=== PATIENT | male | born 1970 | race Caucasian/White ===

== ENCOUNTER 2024-06-23 23:32 | Observation (INO) | payer OTHER ==
--- NOTE | 2024-06-23 23:41 | ERPHSYRPT ---
- History of Present Illness Time Seen by Provider: 06/23/24 23:41 Historian: patient, family Exam Limitations: no limitations Physician History: This is a 53-year-old white male patient arrives via private vehicle accompanied by his significant other who presents with chest pain, palpitations and dizziness that began approximately 45 minutes prior to arrival. Patient states he has had an PR in the past but he has no coronary artery stents or coronary artery bypass grafting. He has seen a magnetic doctor, Dr. Valladares (older) in the past. Patient states he had pericarditis in the past which compressed his heart causing a heart attack but his cardiac catheterization did not show any coronary artery vessel disease. Patient has a history of gastroesophageal reflux d isease, gout, hypertension, diabetes, and COPD. He denies cough. He denies fever. In the last 24 hours he has taken to 81 mg baby aspirin Timing/Duration: today Location: substernal, central Chest Pain Radiation: no radiation Severity of Pain-Max: mild Severity of Pain-Current: mild Associated Symptoms: palpitations, dizziness, No abdominal pain, No shortness of breath Prior Chest Pain/Cardiac Workup: cardiac cath Nitro Today/Relief: no nitro taken today Aspirin Treatment Today: 81 mg x 2, provided at home Allergies/Adverse Reactions: codeine Allergy (Intermediate, Verified 06/23/24 23:52) Vomiting diphenhydramine HCl [From Benadryl] Adverse Reaction (Intermediate, Verified 06/23/24 23:52) acetaminophen [From [employer] [place]] Adverse Reaction (Verified 06/23/24 23:52) hydrocodone [From [employer] [place]] Adverse Reaction (Verified 06/23/24 23:52) Home Medications: Omeprazole 40 mg PO DAILY 09/27/14 [History] Allopurinol 300 mg [Zyloprim 300 mg] 300 mg PO DAILY 12/17/18 [History] lisinopriL [Zestril] 5 mg PO DAILY 12/17/18 [History] Metoprolol Succinate 50 mg [Toprol Xl 50 MG] 50 mg PO BID 08/05/20 [Hi story] Cyanocobalamin (Vitamin B-12) [Vitamin B-12] 1,000 mcg PO DAILY 12/12/23 [History] Dapagliflozin Propanediol [Farxiga] 10 mg PO DAILY 12/12/23 [History] Lurasidone HCl [Latuda] 60 mg PO DAILY 12/12/23 [History] Montelukast Sodium 10 mg [Singulair 10 MG] 10 mg PO DAILY 12/12/23 [History] Trazodone HCl 300 mg PO HS 12/12/23 [History] Zinc Gluconate [Zinc] 50 mg PO DAILY 12/12/23 [History] Semaglutide [Ozempic] 1 mg SQ WEEKLY 06/23/24 [History] Sitagliptin Phosphate 50 MG [Januvia 50 MG] 100 mg PO DAILY 06/23/24 [History] Hx Tetanus, Diphtheria Vaccination/Date Given: Yes Hx Influenza Vaccination/Date Given: No Hx Pneumococcal Vaccination/Date Given: No Travel Risk - International Travel Have you traveled outside of the country in past 3 weeks: No - Emerging Infectious Disease Are you exhibiting symptoms associated with any current EIDs: No - Review of Systems Constitutional: No Symptoms Eyes: No Symptoms Ears, Nose, & Throat: No Symptoms Respiratory: No Symptoms Cardiac: Chest Pain, Palpitations Abdominal/Gastrointestinal: No Symptoms Genitourinary Symptoms: No Symptoms Musculoskeletal: No Symptoms Skin: No Symptoms Neurological: Dizziness Psychological: No Symptoms Endocrine: No Symptoms Hematologic/Lymphatic: No Symptoms Immunological/Allergic: No Symptoms All Other Systems: Reviewed and Negative - Past Medical History Neurological History: No Pertinent History Cardiac History: Hypertension Respiratory History: No Pertinent History Endocrine Medical History: Diabetes Type II Musculoskeletal History: No Pertinent History Other Medical History: DEXCOM. HX OF SX ON R WRIST AFTER A FALL, SINUS SX, HEART CATH - Past Surgical History Past Surgical History: Yes Neuro Surgical History: No Pertinent History Cardiac: Cardiac Catheterization Respiratory: No Pertinent History Gastrointestinal: No Pertinent History Genitourinary: No Pertinent History Musculoskeletal: Orthopedic Surgery Male Surgical History: No Pertinent History Other Surgical History: R WRIST, SINUS - Social History Smoking Status: Never smoker Exposure to second hand smoke: No - Social Determinants of Health Will the patient participate in the screening: Yes Do you worry about a steady place to live?: No In the past 12 months,have you had to go without utilities?: No Transportation Issues: No Has anyone in your support network made you feel unsafe?: No Have you or anyone in your house had to go w/o enough food: No - Nursing Vital Signs Nursing Vital Signs: Initial Vital Signs Temperature 96.3 F 06/23/24 23:40 Pulse Rate 126 H 06/23/24 23:40 Respiratory Rate 20 06/23/24 23:40 Blood Pressure 125/96 06/23/24 23:40 O2 Sat by Pulse Oximetry 94 L 06/23/24 23:40 Pain Scale Pain Intensity 3 - Physical Exam General Appearance: no apparent distress, alert, anxiety Eye Exam: PERRL/EOMI, eyes nml inspection Ears, Nose, Throat Exam: normal ENT inspection, moist mucous membranes Neck Exam: normal inspection, non-tender, supple, full range of motion Respiratory Exam: normal breath sounds, chest tenderness (Mild substernal, central nonradiating), lungs clear, airway intact, No respiratory distress Cardiovascular Exam: tachycardia, irregular Gastrointestinal/Abdomen Exam: soft, normal bowel sounds, No tenderness Rectal Exam: not done Back Exam: normal inspection, normal range of motion, No CVA tenderness, No vertebral tenderness Extremity Exam: normal inspection, normal range of motion, pelvis stable Neurologic Exam: alert, oriented x 3, cooperative, cash applications associate II-XII nml as tested, nml cerebellar function, nml station & gait, sensation nml Skin Exam: normal color, warm, dry Lymphatic Exam: No adenopathy SpO2 Interpretation: normal O2 Delivery: Room Air - Course Nursing assessment & vital signs reviewed: Yes EKG Interpreted by Me: RATE (140), A-fib, NORMAL AXIS, prolonged QT interval (B orderline), NORMAL QRS, Other (QTc is 485. No acute ischemia on today's twelve- lead EKG.) Ordered Tests: Active Orders 24 hr Category Date Time Status Activities Specialist STAT Care 06/23/24 23:44 Active EKG-ER Only STAT Care 06/23/24 23:43 Active IV Insertion STAT Care 06/23/24 23:43 Active Pulse Oximetry (ED) STAT Care 06/24/24 00:17 Active CBC W DIFF Stat Lab 06/23/24 23:50 Completed CMP Stat Lab 06/23/24 23:50 Completed MAGNESIUM Stat Lab 06/23/24 23:50 Completed NT PRO BNPII Stat Lab 06/23/24 23:50 Completed PROTIME WITH INR Stat Lab 06/23/24 23:50 Completed TROPONIN Q4H Lab 06/24/24 00:00 Completed TROPONIN Q4H Lab 06/24/24 04:30 Ordered TROPONIN Q4H Lab 06/24/24 08:30 Ordered TSH [TSH, 3RD Generation] Stat Lab 06/24/24 00:00 Completed UA W/RFX UR CULTURE Stat Lab 06/23/24 23:49 Completed Medication Summary Generic Name Dose Route Start Last Admin Trade Name Silver PRN Reason Stop Dose Admin Diltiazem HCl 100 mls @ 5 mls/hr 06/24/24 00:51 06/24/24 01:02 Cardizem Drip 100 Mg/100 Ml D5w IV 07/24/24 00:50 5 mg/hr .Q20H PRN 5 mls/hr HEART RATE/ A-FIB Administration Protocol 5 MG/HR Discontinued Medications Generic Name Dose Route Start Last Admin Trade Name Freq PRN Reason Stop Dose Admin Aspirin 162 mg 06/24/24 00:17 06/24/24 00:29 Aspirin 81 Mg Tab.Chew PO 06/24/24 00:18 162 mg STAT ONE Administration Aspirin Confirm 06/24/24 00:28 Aspirin 81 Mg Tab.Chew Administered 06/24/24 00:29 Dose 162 mg .ROUTE .STK-MED ONE Diltiazem HCl 15 mg 06/23/24 23:49 06/23/24 23:55 Diltiazem Hcl Iv 5 Mg/Ml Vial IV 06/23/24 23:50 15 mg STAT ONE Administration Diltiazem HCl Confirm 06/23/24 23:54 Diltiazem Hcl Iv 5 Mg/Ml Vial Administered 06/23/24 23:55 Dose 50 mg IV .STK-MED ONE Lab/Rad Data: Laboratory Result Diagrams 06/23/24 23:50 06/23/24 23:50 Laboratory Results 06/24/24 06/24/24 06/24/24 Range/Units 00:00 00:00 00:00 WBC (4.23-9.07) x10^3/uL RBC (4.63-6.08) x10^6/uL Hgb (13.7-17.5) g/dL Hct (40.1-51.0) % MCV (79.0-92.2) fL MCH (25.7-32.2) pg MCHC (32.3-36.5) g/dL RDW (11.6-14.4) % Plt Count (163-337) x10^3/uL MPV (9.4-12.4) fL Gran % (34.0-67.9) % Immature Gran % (Auto) (0.001-0.429) % Nucleat RBC Rel Count (0.00-0.2) % Eos # (Auto) (0.04-0.54) x10^3/uL Immature Gran # (Auto) (0.001-0.031) x10^3u/L Absolute Lymphs (auto) (1.32-3.57) x10^3/uL Absolute Monos (auto) (0.30-0.82) x10^3/uL Absolute Nucleated RBC (0.00-0.012) x10^3u/L Lymphocytes % (21.8-53.1) % Monocytes % (5.3-12.2) % Eosinophils % (0.8-7.0) % Basophils % (0.2-1.2) % Absolute Granulocytes (1.78-5.38) x10^3/uL Basophils # (0.01-0.08) x10^3/uL PT (9.4-12.5) SECONDS INR (0.8-3.0) Sodium (135-145) mmol/L Potassium (3.5-5.1) mmol/L Chloride (98-107) mmol/L Carbon Dioxide (22-30) mmol/L Anion Gap (5-15) MEQ/L BUN (9-20) mg/dL Creatinine (0.66-1.25) mg/dL Estimated GFR ML/MIN Glucose (74-106) mg/dL Calcium (8.4-10.2) mg/dL Magnesium (1.6-2.3) mg/dL Total Bilirubin (0.2-1.3) mg/dL AST (17-59) U/L ALT (0-50) U/L Alkaline Phosphatase (38-126) U/L Troponin I < 0.012 (0.000-0.033) ng/mL NT-Pro-B Natriuret Pep (<300) pg/mL Serum Total Protein (6.3-8.2) g/dL Albumin (3.5-5.0) g/dL Free T4 1.11 (0.78-2.19) ng/dL TSH 3rd Generation 3.028 (0.470-4.680) mIU/L Urine Color (Yellow) Urine Appearance (Clear) Urine pH (4.6-8.0) Ur Specific [place] (1.005-1.030) Urine Protein (Negative) Urine Glucose (UA) (Negative) mg/dL Urine Ketones (Negative) Urine Blood (Negative) Urine Nitrite (Negative) Urine Bilirubin (Negative) Urine Urobilinogen (0.2) mg/dL Ur Leukocyte Esterase (Negative) U Hyaline Cast (Auto) (0-2) /LPF Urine Microscopic RBC (0-5) /HPF Urine Microscopic WBC (0-5) /HPF Ur Epithelial Cells (None Seen) /HPF Urine Bacteria (None Seen) /HPF Urine Culture Reflexed (NO) 06/23/24 06/23/24 06/23/24 Range/Units 23:50 23:50 23:50 WBC (4.23-9.07) x10^3/uL RBC (4.63-6.08) x10^6/uL Hgb (13.7-17.5) g/dL Hct (40.1-51.0) % MCV (79.0-92.2) fL MCH (25.7-32.2) pg MCHC (32.3-36.5) g/dL RDW (11.6-14.4) % Plt Count (163-337) x10^3/uL MPV (9.4-12.4) fL Gran % (34.0-67.9) % Immature Gran % (Auto) (0.001-0.429) % Nucleat RBC Rel Count (0.00-0.2) % Eos # (Auto) (0.04-0.54) x10^3/uL Immature Gran # (Auto) (0.001-0.031) x10^3u/L Absolute Lymphs (auto) (1.32-3.57) x10^3/uL Absolute Monos (auto) (0.30-0.82) x10^3/uL Absolute Nucleated RBC (0.00-0.012) x10^3u/L Lymphocytes % (21.8-53.1) % Monocytes % (5.3-12.2) % Eosinophils % (0.8-7.0) % Basophils % (0.2-1.2) % Absolute Granulocytes (1.78-5.38) x10^3/uL Basophils # (0.01-0.08) x10^3/uL PT 11.2 (9.4-12.5) SECONDS INR 1.03 (0.8-3.0) Sodium 138 (135-145) mmol/L Potassium 3.7 (3.5-5.1) mmol/L Chloride 102 (98-107) mmol/L Carbon Dioxide 27 (22-30) mmol/L Anion Gap 12.5 (5-15) MEQ/L BUN 13 (9-20) mg/dL Creatinine 1.17 (0.66-1.25) mg/dL Estimated GFR 75.5 ML/MIN Glucose 218 H (74-106) mg/dL Calcium 8.8 (8.4-10.2) mg/dL Magnesium 1.7 (1.6-2.3) mg/dL Total Bilirubin 0.70 (0.2-1.3) mg/dL AST 66 H (17-59) U/L ALT 78 H (0-50) U/L Alkaline Phosphatase 126 (38-126) U/L Troponin I (0.000-0.033) ng/mL NT-Pro-B Natriuret Pep 193 (<300) pg/mL Serum Total Protein 6.5 (6.3-8.2) g/dL Albumin 3.8 (3.5-5.0) g/dL Free T4 (0.78-2.19) ng/dL TSH 3rd Generation (0.470-4.680) mIU/L Urine Color (Yellow) Urine Appearance (Clear) Urine pH (4.6-8.0) Ur Specific [place] (1.005-1.030) Urine Protein (Negative) Urine Glucose (UA) (Negative) mg/dL Urine Ketones (Negative) Urine Blood (Negative) Urine Nitrite (Negative) Urine Bilirubin (Negative) Urine Urobilinogen (0.2) mg/dL Ur Leukocyte Esterase (Negative) U Hyaline Cast (Auto) (0-2) /LPF Urine Microscopic RBC (0-5) /HPF Urine Microscopic WBC (0-5) /HPF Ur Epithelial Cells (None Seen) /HPF Urine Bacteria (None Seen) /HPF Urine Culture Reflexed (NO) 06/23/24 06/23/24 Range/Units 23:50 23:49 WBC 9.0 (4.23-9.07) x10^3/uL RBC 4.66 (4.63-6.08) x10^6/uL Hgb 13.5 L (13.7-17.5) g/dL Hct 40.6 (40.1-51.0) % MCV 87.1 (79.0-92.2) fL MCH 29.0 (25.7-32.2) pg MCHC 33.3 (32.3-36.5) g/dL RDW 13.1 (11.6-14.4) % Plt Count 262 (163-337) x10^3/uL MPV 8.9 L (9.4-12.4) fL Gran % 59.5 (34.0-67.9) % Immature Gran % (Auto) 0.2 (0.001-0.429) % Nucleat RBC Rel Count 0.0 (0.00-0.2) % Eos # (Auto) 0.20 (0.04-0.54) x10^3/uL Immature Gran # (Auto) 0.02 (0.001-0.031) x10^3u/L Absolute Lymphs (auto) 2.54 (1.32-3.57) x10^3/uL Absolute Monos (auto) 0.85 H (0.30-0.82) x10^3/uL Absolute Nucleated RBC 0.00 (0.00-0.012) x10^3u/L Lymphocytes % 28.1 (21.8-53.1) % Monocytes % 9.4 (5.3-12.2) % Eosinophils % 2.2 (0.8-7.0) % Basophils % 0.6 (0.2-1.2) % Absolute Granulocytes 5.37 (1.78-5.38) x10^3/uL Basophils # 0.05 (0.01-0.08) x10^3/uL PT (9.4-12.5) SECONDS INR (0.8-3.0) Sodium (135-145) mmol/L Potassium (3.5-5.1) mmol/L Chloride (98-107) mmol/L Carbon Dioxide (22-30) mmol/L Anion Gap (5-15) MEQ/L BUN (9-20) mg/dL Creatinine (0.66-1.25) mg/dL Estimated GFR ML/MIN Glucose (74-106) mg/dL Calcium (8.4-10.2) mg/dL Magnesium (1.6-2.3) mg/dL Total Bilirubin (0.2-1.3) mg/dL AST (17-59) U/L ALT (0-50) U/L Alkaline Phosphatase (38-126) U/L Troponin I (0.000-0.033) ng/mL NT-Pro-B Natriuret Pep (<300) pg/mL Serum Total Protein (6.3-8.2) g/dL Albumin (3.5-5.0) g/dL Free T4 (0.78-2.19) ng/dL TSH 3rd Generation (0.470-4.680) mIU/L Urine Color Yellow (Yellow) Urine Appearance Clear (Clear) Urine pH 7.0 (4.6-8.0) Ur Specific [place] 1.010 (1.005-1.030) Urine Protein Negative (Negative) Urine Glucose (UA) >=1000 A (Negative) mg/dL Urine Ketones Negative (Negative) Urine Blood Negative (Negative) Urine Nitrite Negative (Negative) Urine Bilirubin Negative (Negative) Urine Urobilinogen 0.2 (0.2) mg/dL Ur Leukocyte Esterase Negative (Negative) U Hyaline Cast (Auto) NONE SEEN (0-2) /LPF Urine Microscopic RBC 0-2 (0-5) /HPF Urine Microscopic WBC 0-2 (0-5) /HPF Ur Epithelial Cells None Seen (None Seen) /HPF Urine Bacteria None Seen (None Seen) /HPF Urine Culture Reflexed NO (NO) - Progress Progress: improved, re-examined Air Movement: good Progress Note: 06/23/24 23:51 My medical decision making and assignment of at least moderate complexity is based on review of the patient's past medical history, review of the patient's medication list, review of patient drug allergy list, history present illness and physical findings on examination. The workup in this patient includes placement of a intravenous line, twelve-lead EKG, CBC, CMP, magnesium level, PT/INR, twelve-lead EKG, troponin level, BNP. We will also provide him with 15 mg of intravenous Cardizem. Differential diagnosis includes was not limited to new onset A-fib with RVR, myocardial infarction, electrolyte abnormality, arrhythmia 06/24/24 01:37 I interpreted the patient's laboratory data results. Patient the laboratory data results are no acute, emergent medical issues. I interpreted the patient's second twelve-lead EKG. It was performed on 06/24/2024 at 130 2 in the morning. This was after the patient received a 15 mg Cardizem IV bolus plus he is on a Cardizem drip. His heart rate is 87 bpm. He is rate controlled atrial fibrillation. There is normal axis deviation, normal QRS and normal intervals. The QTc is 443 and there is no evidence of any acute ischemia 06/24/24 01:42 I spoke with the telemetry hospitalist, Dr. Hoffman. I reviewed the patient past medical history, presenting complaint, results of her workup and the patient's response to our intervention. We will place this patient in ICU under observation and continue the Cardizem drip and repeat labs in the morning. He agrees with this plan. Blood Culture(s) Obtained: No Antibiotics given: No Counseled pt/family regarding: lab results, diagnosis Medical Desision Making - Independent Historian Additional History obtained from: Spouse - Diagnostic Testing Diagnostic test were ordered, analyzed, and reviewed by me: Yes - Risk of complications The pt has a high risk of morbidity or mortality based on: Decision regarding hospitilization or escalation of hosp level of care - Departure Departure Disposition: Observation Clinical Impression: Atrial fibrillation with RVR Condition: Stable Critical Care Time: Yes Critical Care Time(excluding separately billable procedures): Critical 30-74 mins (45) Referrals: ERENDIRA JOE MD [Primary Care Provider] - Follow up/PCP as directed
[2024-06-23] MEDS ORDERED: Cardizem IV 50 MG/10 ML IV ONE (23:54)
[2024-06-23 23:55] LABS: Absolute Neutrophil Ct (ANC) 5.37 x10^3/uL (1.78-5.38); BASOPHIL % 0.6 % (0.2-1.2); Basophil (Absolute #) 0.05 x10^3/uL (0.01-0.08); Eosinophil % 2.2 % (0.8-7.0); Hematocrit 40.6 % (40.1-51.0); Hemoglobin 13.5 g/dL (13.7-17.5); IMMATURE GRAN # 0.02 x10^3u/L (0.001-0.031); IMMATURE GRAN % 0.2 % (0.001-0.429); Lymphocyte (Absolute #) 2.54 x10^3/uL (1.32-3.57); Lymphocytes % 28.1 % (21.8-53.1); Mean Cell Volume 87.1 fL (79.0-92.2); Mean Corpuscular Hgb Concent. 33.3 g/dL (32.3-36.5); Mean Platelet Volume 8.9 fL (9.4-12.4); Monocyte (Absolute #) 0.85 x10^3/uL (0.30-0.82); Monocytes % 9.4 % (5.3-12.2); Neutrophil % 59.5 % (34.0-67.9); Platelet Count 262 x10^3/uL (163-337); Red Blood Count 4.66 x10^6/uL (4.63-6.08); Red Cell Distribution Width 13.1 % (11.6-14.4)
[2024-06-23] MEDS: Cardizem IV 50 MG/10 ML IV ONE (23:55)
[2024-06-24 00:09] LABS: ALBUMIN 3.8 g/dL (3.5-5.0); ANION GAP 12.5 MEQ/L (5-15); BILIRUBIN,TOTAL 0.7 mg/dL (0.2-1.3); Calcium 8.8 mg/dL (8.4-10.2); Creatinine 1 1.17 mg/dL (0.66-1.25); EST GLOMERULAR FILTRATION RATE 75.5 ML/MIN; INR 1.03 (0.8-3.0); MAGNESIUM 1.7 mg/dL (1.6-2.3); PROTIME 11.2 SECONDS (9.4-12.5); Potassium 3.7 mmol/L (3.5-5.1); Total Protein 6.5 g/dL (6.3-8.2)
[2024-06-24 00:17] LABS: Appearance Clear (Clear); Bacteria None Seen /HPF (None Seen); Bilirubin Negative (Negative); Blood Negative (Negative); Epithelial Cells None Seen /HPF (None Seen); Glucose, Urine >=1000 mg/dL (Negative); Hyaline Casts NONE SEEN /LPF (0-2); Ketones Negative (Negative); Leukocyte Esterase Negative (Negative); Nitrite Negative (Negative); Protein,Urine Dip Negative (Negative); RBC 0-2 /HPF (0-5); Urobilinogen 0.2 mg/dL (0.2); WBC 0-2 /HPF (0-5)
[2024-06-24] MEDS ORDERED: BABY ASPIRIN 81 MG CHEW ONE (00:28)
[2024-06-24] MEDS: BABY ASPIRIN 81 MG CHEW PO ONE (00:29)
[2024-06-24] MEDS: CARDIZEM DRIP 100 MG/100 ML D5W 100 ML IV PRN (01:02)
[2024-06-24] MEDS ORDERED: Zofran 4 MG/2 ML VIAL IV PRN (02:49)
[2024-06-24] MEDS ORDERED: TYLENOL 325 MG PO PRN (02:49)
[2024-06-24] MEDS ORDERED: HUMULIN R SQ PRN (02:49)
[2024-06-24] MEDS ORDERED: NON-FORMULARY ITEM (Semaglutide [Ozempic] 1 MG/0.75 ML Pen.Injctr) SQ SCH (03:45)
[2024-06-24] MEDS: ENOXAPARIN SODIUM SQ SCH (05:00)
[2024-06-24 05:36] LABS: Absolute Neutrophil Ct (ANC) 3.35 x10^3/uL (1.78-5.38); BASOPHIL % 0.7 % (0.2-1.2); Basophil (Absolute #) 0.05 x10^3/uL (0.01-0.08); Eosinophil % 2.2 % (0.8-7.0); Eosinophil (Absolute #) 0.15 x10^3/uL (0.04-0.54); Hematocrit 39.6 % (40.1-51.0); Hemoglobin 12.9 g/dL (13.7-17.5); IMMATURE GRAN # 0.04 x10^3u/L (0.001-0.031); IMMATURE GRAN % 0.6 % (0.001-0.429); Lymphocyte (Absolute #) 2.49 x10^3/uL (1.32-3.57); Lymphocytes % 37.1 % (21.8-53.1); Mean Corpuscular Hemoglobin 28.7 pg (25.7-32.2); Mean Corpuscular Hgb Concent. 32.6 g/dL (32.3-36.5); Mean Platelet Volume 8.8 fL (9.4-12.4); Monocyte (Absolute #) 0.63 x10^3/uL (0.30-0.82); Monocytes % 9.4 % (5.3-12.2); Platelet Count 263 x10^3/uL (163-337); Red Cell Distribution Width 13.2 % (11.6-14.4); White Blood Count 6.7 x10^3/uL (4.23-9.07)
--- NOTE | 2024-06-24 05:38 | PCM.HP ---
History of Present Illness - Chief Complaint Chief Complaint: Atrial fibrillation with RVR Date: 06/24/24 History of Present Illness: is a 53 year old male with a history of CAD/DC (no PCI or CABG - had clean cath per history in [address] Sammie Valladares) who presented to the ED with chest pain, palpitations and dizziness that began approximately 45 minutes prior to arrival. Patient states he had pericarditis in the past which compressed his heart causing a heart attack but his cardiac catheterization did not show any coronary artery vessel disease. Patient also has a history of gastroesophageal reflux disease, gout, hypertension, diabetes, and COPD. He denied cough and fever. In the last 24 hours he took aspirin. In the ED, the patient was noted to be in new onset atrial fibrillation with RVR. He did not initially achieve rate control with a bolus of Diltiazem, so an infusion was started with improved control. - Review of Systems Constitutional: No Symptoms Eyes: No Symptoms Ears, Nose, & Throat: No Symptoms Respiratory: No Symptoms Cardiac: Chest Pain, Palpitations Abdominal/Gastrointestinal: No Symptoms Genitourinary Symptoms: No Symptoms Musculoskeletal: No Symptoms Skin: No Symptoms Neurological: Dizziness Psychological: No Symptoms Endocrine: No Symptoms Hematologic/Lymphatic: No Symptoms Immunological/Allergic: No Symptoms All Other Systems: Reviewed and Negative Medications & Allergies Home Medications: Home Medication List Omeprazole 40 mg PO DAILY 09/27/14 [History Confirmed 06/23/24] Allopurinol 300 mg [Zyloprim 300 mg] 300 mg PO DAILY 12/17/18 [History Confirmed 06/23/24] lisinopriL [Zestril] 5 mg PO DAILY 12/17/18 [History Confirmed 06/23/24] Metoprolol Succinate 50 mg [Toprol Xl 50 MG] 50 mg PO BID 08/05/20 [History Confirmed 06/23/24] Cyanocobalamin (Vitamin B-12) [Vitamin B-12] 1,000 mcg PO DAILY 12/12/23 [History Confirmed 06/23/24] Dapagliflozin Propanediol [Farxiga] 10 mg PO DAILY 12/12/23 [History Confirmed 06/23/24] Lurasidone HCl [Latuda] 60 mg PO DAILY 12/12/23 [History Confirmed 06/23/24] Montelukast Sodium 10 mg [Singulair 10 MG] 10 mg PO DAILY 12/12/23 [History Confirmed 06/23/24] Trazodone HCl 300 mg PO HS 12/12/23 [History Confirmed 06/23/24] Zinc Gluconate [Zinc] 50 mg PO DAILY 12/12/23 [History Confirmed 06/23/24] Aspirin EC 81 mg [Ecotrin 81 mg] 81 mg PO DAILY #0 12/13/23 [Rx Confirmed 06/23/24] Semaglutide [Ozempic] 1 mg SQ WEEKLY 06/23/24 [History Confirmed 06/23/24] Sitagliptin Phosphate 50 MG [Januvia 50 MG] 100 mg PO DAILY 06/23/24 [History Confirmed 06/23/24] Allergies/Adverse Reactions: Allergies Allergy/AdvReac Type Severity Reaction Status Date / Time codeine Allergy Intermediate Vomiting Verified 06/23/24 23:52 diphenhydramine HCl AdvReac Intermediate Verified 06/23/24 23:52 [From Benadryl] acetaminophen [From [place]] AdvReac Verified 06/23/24 23:52 hydrocodone [From [place]] AdvReac Verified 06/23/24 23:52 - Past Medical History Past Medical History: Yes Neurological History: Migraines ENT History: No Pertinent History Cardiac History: Hypertension, Myocardial Infarction (DC) Respiratory History: No Pertinent History Endocrine Medical History: Diabetes Type II Musculoskelatal History: Arthritis, Fractures GI Medical History: GERD History: No Pertinent History Pyscho-Social History: Depression, Anxiety Male Reproductive Disorders: No Pertinent History Comment: DEXCOM,HX OF SX ON R WRIST AFTER A FALL, L ankle, SINUS SX, HEART CATH. DC caused by pericarditis squezzing on heart - Past Surgical History Past Surgical History: Yes Neuro Surgical History: No Pertinent History Cardiac History: Cardiac Catheterization Respiratory Surgery: No Pertinent History GI Surgical History: No Pertinent History Genitourinary Surgical Hx: No Pertinent History Musculskeletal Surgical Hx: Orthopedic Surgery Male Surgical History: No Pertinent History Other Surgical History: R WRIST, SINUS, L ankle Significant Family History: no pertinent family hx - Social History Smoking Status: Never smoker Exposure to second hand smoke: No Alcohol: Rarely Drug Use: none - Social Determinants of Health Will the patient participate in the screening: Yes Do you worry about a steady place to live?: No Do you have any problems with any of the following?: No known problems In the past 12 months,have you had to go without utilities?: No Have you or anyone in your house had to go without enough: No Transportation Issues: No Has anyone in your support network made you feel unsafe?: No Does the patient want assistance with any of the above?: No - Physical Exam Vital Signs: Vital Signs - 24 hr Temp Pulse Pulse Resp BP BP Pulse Ox 06/24/24 05:30 81 26 H 100/75 92 L 06/24/24 05:00 78 8 L 117/63 92 L 06/24/24 04:30 73 3 L 108/65 91 L 06/24/24 04:02 76 11 L 111/77 06/24/24 04:00 76 11 L 111/77 91 L 06/24/24 03:30 103 H 19 111/72 94 L 06/24/24 03:15 66 14 102/76 06/24/24 03:07 66 14 102/76 91 L 06/24/24 02:49 97.6 F 92 H 20 114/80 94 L 06/24/24 02:48 79 19 114/80 92 L 06/24/24 02:05 90 17 115/65 92 L 06/24/24 02:00 94 H 10 L 118/86 97 06/24/24 01:55 99 H 16 116/77 96 06/24/24 01:50 86 10 L 122/83 95 06/24/24 01:45 117 H 13 117/80 95 06/24/24 01:40 79 12 103/83 92 L 06/24/24 01:35 94 H 7 L 109/74 94 L 06/24/24 01:30 104 H 7 L 113/64 96 06/24/24 01:25 99 H 17 118/80 92 L 06/24/24 01:20 104 H 9 L 105/61 92 L 06/24/24 01:15 92 H 13 99/70 92 L 06/24/24 01:10 98 H 10 L 108/70 93 L 06/24/24 01:06 101 H 14 120/55 93 L 06/24/24 01:02 89 12 122/55 06/24/24 01:00 96 H 18 93/60 92 L 06/24/24 00:32 95 06/24/24 00:30 81 19 116/78 92 L 06/24/24 00:01 92 H 18 122/76 92 L 06/23/24 23:40 96.3 F 103 H 120 H 17 125/96 125/96 92 L General Appearance: no apparent distress, alert Neurologic Exam: alert, oriented x 3, cooperative, skiver heel tap II-XII nml as tested, normal mood/affect, nml cerebellar function Eye Exam: PERRL/EOMI, eyes nml inspection Ears, Nose, Throat Exam: normal ENT inspection Neck Exam: normal inspection, non-tender, supple, full range of motion Respiratory Exam: normal breath sounds, lungs clear, crackles/rales Cardiovascular Exam: irregular, edema Gastrointestinal/Abdomen Exam: soft Back Exam: normal range of motion Extremity Exam: normal range of motion, pedal edema, swelling Skin Exam: normal color Results - Labs Lab/Micro Results: Lab Results-Last 24 Hours 06/23/24 06/23/24 06/23/24 Range/Units 23:49 23:50 23:50 WBC 9.0 (4.23-9.07) x10^3/uL RBC 4.66 (4.63-6.08) x10^6/uL Hgb 13.5 L (13.7-17.5) g/dL Hct 40.6 (40.1-51.0) % MCV 87.1 (79.0-92.2) fL MCH 29.0 (25.7-32.2) pg MCHC 33.3 (32.3-36.5) g/dL RDW 13.1 (11.6-14.4) % Plt Count 262 (163-337) x10^3/uL MPV 8.9 L (9.4-12.4) fL Gran % 59.5 (34.0-67.9) % Immature Gran % (Auto) 0.2 (0.001-0.429) % Nucleat RBC Rel Count 0.0 (0.00-0.2) % Eos # (Auto) 0.20 (0.04-0.54) x10^3/uL Immature Gran # (Auto) 0.02 (0.001-0.031) x10^3u/L Absolute Lymphs (auto) 2.54 (1.32-3.57) x10^3/uL Absolute Monos (auto) 0.85 H (0.30-0.82) x10^3/uL Absolute Nucleated RBC 0.00 (0.00-0.012) x10^3u/L Lymphocytes % 28.1 (21.8-53.1) % Monocytes % 9.4 (5.3-12.2) % Eosinophils % 2.2 (0.8-7.0) % Basophils % 0.6 (0.2-1.2) % Absolute Granulocytes 5.37 (1.78-5.38) x10^3/uL Basophils # 0.05 (0.01-0.08) x10^3/uL PT (9.4-12.5) SECONDS INR (0.8-3.0) Sodium 138 (135-145) mmol/L Potassium 3.7 (3.5-5.1) mmol/L Chloride 102 (98-107) mmol/L Carbon Dioxide 27 (22-30) mmol/L Anion Gap 12.5 (5-15) MEQ/L BUN 13 (9-20) mg/dL Creatinine 1.17 (0.66-1.25) mg/dL Estimated GFR 75.5 ML/MIN Glucose 218 H (74-106) mg/dL Calcium 8.8 (8.4-10.2) mg/dL Magnesium 1.7 (1.6-2.3) mg/dL Total Bilirubin 0.70 (0.2-1.3) mg/dL AST 66 H (17-59) U/L ALT 78 H (0-50) U/L Alkaline Phosphatase 126 (38-126) U/L Troponin I (0.000-0.033) ng/mL NT-Pro-B Natriuret Pep (<300) pg/mL Serum Total Protein 6.5 (6.3-8.2) g/dL Albumin 3.8 (3.5-5.0) g/dL Free T4 (0.78-2.19) ng/dL TSH 3rd Generation (0.470-4.680) mIU/L Urine Color Yellow (Yellow) Urine Appearance Clear (Clear) Urine pH 7.0 (4.6-8.0) Ur Specific [place] 1.010 (1.005-1.030) Urine Protein Negative (Negative) Urine Glucose (UA) >=1000 A (Negative) mg/dL Urine Ketones Negative (Negative) Urine Blood Negative (Negative) Urine Nitrite Negative (Negative) Urine Bilirubin Negative (Negative) Urine Urobilinogen 0.2 (0.2) mg/dL Ur Leukocyte Esterase Negative (Negative) U Hyaline Cast (Auto) NONE SEEN (0-2) /LPF Urine Microscopic RBC 0-2 (0-5) /HPF Urine Microscopic WBC 0-2 (0-5) /HPF Ur Epithelial Cells None Seen (None Seen) /HPF Urine Bacteria None Seen (None Seen) /HPF Urine Culture Reflexed NO (NO) 06/23/24 06/23/24 06/24/24 Range/Units 23:50 23:50 00:00 WBC (4.23-9.07) x10^3/uL RBC (4.63-6.08) x10^6/uL Hgb (13.7-17.5) g/dL Hct (40.1-51.0) % MCV (79.0-92.2) fL MCH (25.7-32.2) pg MCHC (32.3-36.5) g/dL RDW (11.6-14.4) % Plt Count (163-337) x10^3/uL MPV (9.4-12.4) fL Gran % (34.0-67.9) % Immature Gran % (Auto) (0.001-0.429) % Nucleat RBC Rel Count (0.00-0.2) % Eos # (Auto) (0.04-0.54) x10^3/uL Immature Gran # (Auto) (0.001-0.031) x10^3u/L Absolute Lymphs (auto) (1.32-3.57) x10^3/uL Absolute Monos (auto) (0.30-0.82) x10^3/uL Absolute Nucleated RBC (0.00-0.012) x10^3u/L Lymphocytes % (21.8-53.1) % Monocytes % (5.3-12.2) % Eosinophils % (0.8-7.0) % Basophils % (0.2-1.2) % Absolute Granulocytes (1.78-5.38) x10^3/uL Basophils # (0.01-0.08) x10^3/uL PT 11.2 (9.4-12.5) SECONDS INR 1.03 (0.8-3.0) Sodium (135-145) mmol/L Potassium (3.5-5.1) mmol/L Chloride (98-107) mmol/L Carbon Dioxide (22-30) mmol/L Anion Gap (5-15) MEQ/L BUN (9-20) mg/dL Creatinine (0.66-1.25) mg/dL Estimated GFR ML/MIN Glucose (74-106) mg/dL Calcium (8.4-10.2) mg/dL Magnesium (1.6-2.3) mg/dL Total Bilirubin (0.2-1.3) mg/dL AST (17-59) U/L ALT (0-50) U/L Alkaline Phosphatase (38-126) U/L Troponin I < 0.012 (0.000-0.033) ng/mL NT-Pro-B Natriuret Pep 193 (<300) pg/mL Serum Total Protein (6.3-8.2) g/dL Albumin (3.5-5.0) g/dL Free T4 (0.78-2.19) ng/dL TSH 3rd Generation (0.470-4.680) mIU/L Urine Color (Yellow) Urine Appearance (Clear) Urine pH (4.6-8.0) Ur Specific [place] (1.005-1.030) Urine Protein (Negative) Urine Glucose (UA) (Negative) mg/dL Urine Ketones (Negative) Urine Blood (Negative) Urine Nitrite (Negative) Urine Bilirubin (Negative) Urine Urobilinogen (0.2) mg/dL Ur Leukocyte Esterase (Negative) U Hyaline Cast (Auto) (0-2) /LPF Urine Microscopic RBC (0-5) /HPF Urine Microscopic WBC (0-5) /HPF Ur Epithelial Cells (None Seen) /HPF Urine Bacteria (None Seen) /HPF Urine Culture Reflexed (NO) 06/24/24 06/24/24 Range/Units 00:00 00:00 WBC (4.23-9.07) x10^3/uL RBC (4.63-6.08) x10^6/uL Hgb (13.7-17.5) g/dL Hct (40.1-51.0) % MCV (79.0-92.2) fL MCH (25.7-32.2) pg MCHC (32.3-36.5) g/dL RDW (11.6-14.4) % Plt Count (163-337) x10^3/uL MPV (9.4-12.4) fL Gran % (34.0-67.9) % Immature Gran % (Auto) (0.001-0.429) % Nucleat RBC Rel Count (0.00-0.2) % Eos # (Auto) (0.04-0.54) x10^3/uL Immature Gran # (Auto) (0.001-0.031) x10^3u/L Absolute Lymphs (auto) (1.32-3.57) x10^3/uL Absolute Monos (auto) (0.30-0.82) x10^3/uL Absolute Nucleated RBC (0.00-0.012) x10^3u/L Lymphocytes % (21.8-53.1) % Monocytes % (5.3-12.2) % Eosinophils % (0.8-7.0) % Basophils % (0.2-1.2) % Absolute Granulocytes (1.78-5.38) x10^3/uL Basophils # (0.01-0.08) x10^3/uL PT (9.4-12.5) SECONDS INR (0.8-3.0) Sodium (135-145) mmol/L Potassium (3.5-5.1) mmol/L Chloride (98-107) mmol/L Carbon Dioxide (22-30) mmol/L Anion Gap (5-15) MEQ/L BUN (9-20) mg/dL Creatinine (0.66-1.25) mg/dL Estimated GFR ML/MIN Glucose (74-106) mg/dL Calcium (8.4-10.2) mg/dL Magnesium (1.6-2.3) mg/dL Total Bilirubin (0.2-1.3) mg/dL AST (17-59) U/L ALT (0-50) U/L Alkaline Phosphatase (38-126) U/L Troponin I (0.000-0.033) ng/mL NT-Pro-B Natriuret Pep (<300) pg/mL Serum Total Protein (6.3-8.2) g/dL Albumin (3.5-5.0) g/dL Free T4 1.11 (0.78-2.19) ng/dL TSH 3rd Generation 3.028 (0.470-4.680) mIU/L Urine Color (Yellow) Urine Appearance (Clear) Urine pH (4.6-8.0) Ur Specific [place] (1.005-1.030) Urine Protein (Negative) Urine Glucose (UA) (Negative) mg/dL Urine Ketones (Negative) Urine Blood (Negative) Urine Nitrite (Negative) Urine Bilirubin (Negative) Urine Urobilinogen (0.2) mg/dL Ur Leukocyte Esterase (Negative) U Hyaline Cast (Auto) (0-2) /LPF Urine Microscopic RBC (0-5) /HPF Urine Microscopic WBC (0-5) /HPF Ur Epithelial Cells (None Seen) /HPF Urine Bacteria (None Seen) /HPF Urine Culture Reflexed (NO) - Radiology Impressions Radiology Exams & Impressions: Radiology Procedures Category Date Time Status ECHO W/2D AND DOPPLER [US] Routine Exams 06/24/24 03:42 Ordered - Other Procedures and Tests Respiratory Therapy 06/24/24 02:49 EKG REPEAT IN AM Assessment/Plan (1) Atrial fibrillation with RVR Current Visit: Yes Status: Acute Assessment & Plan: Rate control with IV Cardizem infusion. Wean off as tolerated. Already on beta jerica which can be titrated. Telemetry. ECHO ordered. Will obtain cardiology consult in AM. Will place on full dose Lovenox for now and await cardiology recommendations. Code(s): I48.91 - UNSPECIFIED ATRIAL FIBRILLATION (2) Chest pain Current Visit: Yes Status: Acute Assessment & Plan: Serial troponins on telemetry. Cardiology to be consulted in AM. Can obtain records in AM from Dr. Valladares. ECHO ordered. Code(s): R07.9 - CHEST PAIN, UNSPECIFIED (3) Diabetes Current Visit: No Status: Acute Assessment & Plan: Monitor sugars on ISS. Code(s): E11.9 - TYPE 2 DIABETES MELLITUS WITHOUT COMPLICATIONS (4) Dizziness Current Visit: No Status: Acute Assessment & Plan: Dizziness and palpitations likely due to RVR. Monitor symptoms. PT eval. F/U ECHO. Code(s): R42 - DIZZINESS AND GIDDINESS Telemedicine Encounter - Telemedicine Encounter Telemedicine Encounter: "The entirety of this encounter was performed via Telemedicine" This visit was performed using real-time audio and video connection between my location and thepatients locationwith the assistance of a surrogateat the patients location. Written or verbal consent was obtained from the patient/guardian to perform this visit [facility]. Any patient questions regarding the telemedicine interaction were answered. Please note that this admission required 52 minutes to complete.
[2024-06-24] MEDS ORDERED: MEDICATION INTERVENTION MC SCH ×3 (07:15)
[2024-06-24 07:33] LABS: ALBUMIN 3.2 g/dL (3.5-5.0); ANION GAP 10.9 MEQ/L (5-15); BILIRUBIN,TOTAL 0.5 mg/dL (0.2-1.3); Calcium 8.7 mg/dL (8.4-10.2); Creatinine 1 1.02 mg/dL (0.66-1.25); Potassium 3.7 mmol/L (3.5-5.1); Total Protein 5.6 g/dL (6.3-8.2)
[2024-06-24] MEDS: MAG-OX 400 PO ONE (08:36)
[2024-06-24] MEDS: Klor Con PO ONE (08:36)
[2024-06-24] MEDS ORDERED: NON-FORMULARY ITEM (Lisinopril [Zestril] 30 MG Tablet) PO SCH (10:00)
[2024-06-24] MEDS: Januvia 50 MG PO SCH (10:00)
[2024-06-24] MEDS ORDERED: NON-FORMULARY ITEM (Cyanocobalamin (Vitamin B-12) [Vitamin B-12] 1,000 MCG Capsule) PO SCH (10:00)
[2024-06-24] MEDS ORDERED: ECOTRIN 81 MG PO SCH (10:00)
[2024-06-24] MEDS ORDERED: NON-FORMULARY ITEM (Omeprazole [Omeprazole] 40 MG Capsule.Dr) PO SCH (10:00)
[2024-06-24] MEDS ORDERED: LURASIDONE HCL 60 MG PO SCH (10:00)
[2024-06-24] MEDS ORDERED: BABY ASPIRIN 81 MG CHEW PO SCH (10:00)
[2024-06-24] MEDS ORDERED: NON-FORMULARY ITEM (Dapagliflozin Propanediol [Farxiga] 10 MG Tablet) PO SCH (10:00)
[2024-06-24] MEDS: Zestril 5 MG PO SCH (10:01)
[2024-06-24] MEDS: ECOTRIN 81 MG PO SCH (10:01)
[2024-06-24] MEDS: ZYLOPRIM 300 MG PO SCH (10:01)
[2024-06-24] MEDS: Toprol Xl 50 MG PO SCH (10:01)
[2024-06-24] MEDS: Protonix 40MG Tablet PO SCH (10:01)
[2024-06-24] MEDS: Zinc Gluconate 50 MG PO SCH (10:01)
[2024-06-24] MEDS: Vitamin B-12 500 MCG PO SCH (10:01)
[2024-06-24] MEDS: Singulair 10 MG PO SCH (10:01)
--- NOTE | 2024-06-24 14:48 | PCM.CONS ---
History of Present Illness - Date of Consult Date of Encounter: 06/24/24 Consulting Finance Admin: HARISH PANDA MD Requesting Provider: Attending Provider: KEMAR STONE MD Primary Care Provider: PCP: ERENDIRA JOE MD - Consult Narrative Reason for Consult: afib HPI: 53 year old male with a history ?[place] (clean cath 2018), pericarditis, gastroesophageal reflux disease, gout, hypertension, diabetes, and COPD who presented with palpitations and chest tightness since last night. He denied cough and fever. In the last 24 hours he took aspirin. In the ED, the patient was noted to be in new onset atrial fibrillation with RVR. He did not initially achieve rate control with a bolus of Diltiazem, so an infusion was started with improved control. Pt admitted to ICU and Toprol xl started and he was weaned off of dilt drip. HR 70s bpm. Patient denies orthopnea, PND, LE edema, anymore shortness of breath or chest pain, reflux symptoms, belly pain, dysuria, hematuria, melena, hematochezia, seizures, paralysis, or other neurological changes. All other systems have been reviewed and are negative. cc:: The requesting physician will be sent a copy of the consult. Review of Systems - Review of Systems All systems: as per HPI - Past Medical History Past Medical History: Yes Neurological History: Migraines ENT History: No Pertinent History Cardiac History: Hypertension, Myocardial Infarction (IN) Respiratory History: No Pertinent History Endocrine Medical History: Diabetes Type II Musculoskelatal History: Arthritis, Fractures GI Medical History: GERD History: No Pertinent History Pyscho-Social History: Depression, Anxiety Male Reproductive Disorders: No Pertinent History Comment: DEXCOM,HX OF SX ON R WRIST AFTER A FALL, L ankle, SINUS SX, HEART CATH. IN caused by pericarditis squezzing on heart - Past Surgical History Past Surgical History: Yes Neuro Surgical History: No Pertinent History Cardiac History: Cardiac Catheterization Respiratory Surgery: No Pertinent History GI Surgical History: No Pertinent History Genitourinary Surgical Hx: No Pertinent History Musculskeletal Surgical Hx: Orthopedic Surgery Male Surgical History: No Pertinent History Other Surgical History: R WRIST, SINUS, L ankle Significant Family History: no pertinent family hx - Social History Smoking Status: Never smoker Exposure to second hand smoke: No Alcohol: Rarely Drug Use: none - Social Determinants of Health Will the patient participate in the screening: Yes Do you worry about a steady place to live?: No Do you have any problems with any of the following?: No known problems In the past 12 months,have you had to go without utilities?: No Have you or anyone in your house had to go without enough: No Transportation Issues: No Has anyone in your support network made you feel unsafe?: No Does the patient want assistance with any of the above?: No Medications & Allergies Home Medications: Home Medication List Omeprazole 40 mg PO DAILY 09/27/14 [History Confirmed 06/23/24] Allopurinol 300 mg [Zyloprim 300 mg] 300 mg PO DAILY 12/17/18 [History Confirmed 06/23/24] lisinopriL [Zestril] 5 mg PO DAILY 12/17/18 [History Confirmed 06/23/24] Metoprolol Succinate 50 mg [Toprol Xl 50 MG] 50 mg PO BID 08/05/20 [History Confirmed 06/23/24] Cyanocobalamin (Vitamin B-12) [Vitamin B-12] 1,000 mcg PO DAILY 12/12/23 [History Confirmed 06/23/24] Dapagliflozin Propanediol [Farxiga] 10 mg PO DAILY 12/12/23 [History Confirmed 06/23/24] Lurasidone HCl [Latuda] 60 mg PO DAILY 12/12/23 [History Confirmed 06/23/24] Montelukast Sodium 10 mg [Singulair 10 MG] 10 mg PO DAILY 12/12/23 [History Confirmed 06/23/24] Trazodone HCl 300 mg PO HS 12/12/23 [History Confirmed 06/23/24] Zinc Gluconate [Zinc] 50 mg PO DAILY 12/12/23 [History Confirmed 06/23/24] Aspirin EC 81 mg [Ecotrin 81 mg] 81 mg PO DAILY #0 12/13/23 [Rx Confirmed 06/23/24] Semaglutide [Ozempic] 1 mg SQ WEEKLY 06/23/24 [History Confirmed 06/23/24] Sitagliptin Phosphate 50 MG [Januvia 50 MG] 100 mg PO DAILY 06/23/24 [History Confirmed 06/23/24] Allergies/Adverse Reactions: Allergies Allergy/AdvReac Type Severity Reaction Status Date / Time codeine Allergy Intermediate Vomiting Verified 06/23/24 23:52 diphenhydramine HCl AdvReac Intermediate Verified 06/23/24 23:52 [From Benadryl] acetaminophen [From [place]] AdvReac Verified 06/23/24 23:52 hydrocodone [From [place]] AdvReac Verified 06/23/24 23:52 Exam - Vitals Vital Signs: Vital Signs - 24 hr Temp Pulse Pulse Resp BP BP Pulse Ox 06/24/24 14:00 64 19 121/85 93 L 06/24/24 13:30 63 15 120/70 92 L 06/24/24 13:02 78 15 110/72 06/24/24 13:00 67 20 110/72 96 06/24/24 12:30 71 26 H 110/72 93 L 06/24/24 12:02 64 18 132/80 06/24/24 12:00 74 22 115/61 93 L 06/24/24 11:30 77 20 123/83 98 06/24/24 11:02 71 16 123/83 06/24/24 11:00 66 16 137/79 93 L 06/24/24 10:30 69 18 109/69 92 L 06/24/24 10:02 89 14 101/62 06/24/24 10:00 60 14 101/62 94 L 06/24/24 09:30 62 17 128/75 90 L 06/24/24 09:02 68 17 128/75 06/24/24 09:00 64 14 119/80 95 06/24/24 08:30 59 L 16 114/76 06/24/24 08:02 79 11 L 110/72 06/24/24 08:00 72 110/72 94 L 06/24/24 07:30 64 13 98/67 95 06/24/24 07:17 94 L 06/24/24 07:02 74 15 94/65 06/24/24 07:00 74 15 94/65 92 L 06/24/24 06:30 70 15 96/68 92 L 06/24/24 06:02 88 18 105/72 06/24/24 06:00 88 18 105/72 89 L 06/24/24 05:34 92 L 06/24/24 05:30 81 26 H 100/75 92 L 06/24/24 05:02 78 8 L 117/63 06/24/24 05:00 78 8 L 117/63 92 L 06/24/24 04:30 73 3 L 108/65 91 L 06/24/24 04:02 76 11 L 111/77 06/24/24 04:00 76 11 L 111/77 91 L 06/24/24 03:30 103 H 19 111/72 94 L 06/24/24 03:15 66 14 102/76 06/24/24 03:07 66 14 102/76 91 L 06/24/24 02:49 97.6 F 92 H 20 114/80 94 L 06/24/24 02:48 79 19 114/80 92 L 06/24/24 02:05 90 17 115/65 92 L 06/24/24 02:00 94 H 10 L 118/86 97 06/24/24 01:55 99 H 16 116/77 96 06/24/24 01:50 86 10 L 122/83 95 06/24/24 01:45 117 H 13 117/80 95 06/24/24 01:40 79 12 103/83 92 L 06/24/24 01:35 94 H 7 L 109/74 94 L 06/24/24 01:30 104 H 7 L 113/64 96 06/24/24 01:25 99 H 17 118/80 92 L 06/24/24 01:20 104 H 9 L 105/61 92 L 06/24/24 01:15 92 H 13 99/70 92 L 06/24/24 01:10 98 H 10 L 108/70 93 L 06/24/24 01:06 101 H 14 120/55 93 L 06/24/24 01:02 89 12 122/55 06/24/24 01:00 96 H 18 93/60 92 L 06/24/24 00:32 95 06/24/24 00:30 81 19 116/78 92 L 06/24/24 00:01 92 H 18 122/76 92 L 06/23/24 23:40 96.3 F 103 H 120 H 17 125/96 125/96 92 L General:: alert and oriented x 4, no acute distress HEENT: PERRLA, EOMI Cardiovascular Exam: irregular Respiratory Exam: normal breath sounds SpO2: 93 Gastrointestinal/Abdomen Exam: soft Skin Exam: normal color Extremity Exam: normal inspection, normal range of motion Neurologic: regional sales engineer II-XII grossly intact Results Vital Signs: Vital Signs - 24 hr Temp Pulse Pulse Resp BP BP Pulse Ox 06/24/24 14:00 64 19 121/85 93 L 06/24/24 13:30 63 15 120/70 92 L 06/24/24 13:02 78 15 110/72 06/24/24 13:00 67 20 110/72 96 06/24/24 12:30 71 26 H 110/72 93 L 06/24/24 12:02 64 18 132/80 06/24/24 12:00 74 22 115/61 93 L 06/24/24 11:30 77 20 123/83 98 06/24/24 11:02 71 16 123/83 06/24/24 11:00 66 16 137/79 93 L 06/24/24 10:30 69 18 109/69 92 L 06/24/24 10:02 89 14 101/62 06/24/24 10:00 60 14 101/62 94 L 06/24/24 09:30 62 17 128/75 90 L 06/24/24 09:02 68 17 128/75 06/24/24 09:00 64 14 119/80 95 06/24/24 08:30 59 L 16 114/76 06/24/24 08:02 79 11 L 110/72 06/24/24 08:00 72 110/72 94 L 06/24/24 07:30 64 13 98/67 95 06/24/24 07:17 94 L 06/24/24 07:02 74 15 94/65 06/24/24 07:00 74 15 94/65 92 L 06/24/24 06:30 70 15 96/68 92 L 06/24/24 06:02 88 18 105/72 06/24/24 06:00 88 18 105/72 89 L 06/24/24 05:34 92 L 06/24/24 05:30 81 26 H 100/75 92 L 06/24/24 05:02 78 8 L 117/63 06/24/24 05:00 78 8 L 117/63 92 L 06/24/24 04:30 73 3 L 108/65 91 L 06/24/24 04:02 76 11 L 111/77 06/24/24 04:00 76 11 L 111/77 91 L 06/24/24 03:30 103 H 19 111/72 94 L 06/24/24 03:15 66 14 102/76 06/24/24 03:07 66 14 102/76 91 L 06/24/24 02:49 97.6 F 92 H 20 114/80 94 L 06/24/24 02:48 79 19 114/80 92 L 06/24/24 02:05 90 17 115/65 92 L 06/24/24 02:00 94 H 10 L 118/86 97 06/24/24 01:55 99 H 16 116/77 96 06/24/24 01:50 86 10 L 122/83 95 06/24/24 01:45 117 H 13 117/80 95 06/24/24 01:40 79 12 103/83 92 L 06/24/24 01:35 94 H 7 L 109/74 94 L 06/24/24 01:30 104 H 7 L 113/64 96 06/24/24 01:25 99 H 17 118/80 92 L 06/24/24 01:20 104 H 9 L 105/61 92 L 06/24/24 01:15 92 H 13 99/70 92 L 06/24/24 01:10 98 H 10 L 108/70 93 L 06/24/24 01:06 101 H 14 120/55 93 L 06/24/24 01:02 89 12 122/55 06/24/24 01:00 96 H 18 93/60 92 L 06/24/24 00:32 95 06/24/24 00:30 81 19 116/78 92 L 06/24/24 00:01 92 H 18 122/76 92 L 06/23/24 23:40 96.3 F 103 H 120 H 17 125/96 125/96 92 L Pain Assessment - Last Documented Pain Intensity 2 Intake and Output: Intake & Output 06/22/24 06/23/24 06/24/24 06/25/24 11:59 11:59 11:59 11:59 Output Total 1000 Balance -1000 Weight 97.4 kg LAB: I have reviewed the Labs in [place]. Radiology Exams: Radiology Procedures Category Date Time Status ECHO W/2D AND DOPPLER [US] Routine Exams 06/24/24 03:42 Ordered Assessment & Plan (1) Atrial fibrillation with RVR Current Visit: Yes Status: Acute Assessment & Plan: - pt's heart rate now well controlled off of diltiazem drip - c/w toprol 50 mg PO BID for rate control - stop lovenox and switch to Eliquis 5 mg PO BID for stroke prevention. risks/benefits of long term care phlebotomist OAC fully discussed with pt including risk of bleeding with OAC and risk of stroke without OAC. - Outpatient cardiology f/u in 1-2 weeks to discuss POONAM cardioversion as he has some symptoms of palpitations and weakness even with rate control - c/w BP meds Code(s): I48.91 - UNSPECIFIED ATRIAL FIBRILLATION (2) Chest pain Current Visit: Yes Status: Acute Assessment & Plan: EKG reviewed. shows AF with nonspecific t wave changes. troponins negative. no evidence of ACS. Symptoms were likely from AF with RVR. if has recurrence of CP, can consider outpatient stress test. outpatient cardiology f/u Code(s): R07.9 - CHEST PAIN, UNSPECIFIED - Encounter Encounter: "The entirety of this encounter was performed via Telemedicine using audio and visual "
[2024-06-24] MEDS ORDERED: ENOXAPARIN SODIUM SQ SCH (18:00)
[2024-06-24] MEDS ORDERED: TRAZODONE HCL 300 MG PO SCH (22:00)
[2024-06-24] MEDS: ELIQUIS 2.5 MG TABLET PO SCH (22:12)
[2024-06-24] MEDS: DESYREL 50 MG PO SCH (22:12)
[2024-06-25 06:00] LABS: Hematocrit 42.6 % (40.1-51.0); Hemoglobin 13.8 g/dL (13.7-17.5); Mean Cell Volume 88.8 fL (79.0-92.2); Mean Corpuscular Hemoglobin 28.8 pg (25.7-32.2); Mean Corpuscular Hgb Concent. 32.4 g/dL (32.3-36.5); Mean Platelet Volume 8.9 fL (9.4-12.4); Platelet Count 270 x10^3/uL (163-337); Red Cell Distribution Width 13.2 % (11.6-14.4); White Blood Count 6.8 x10^3/uL (4.23-9.07)
[2024-06-25 06:30] LABS: ALBUMIN 3.4 g/dL (3.5-5.0); ANION GAP 11.3 MEQ/L (5-15); BILIRUBIN,TOTAL 0.6 mg/dL (0.2-1.3); Calcium 8.3 mg/dL (8.4-10.2); Creatinine 1 0.79 mg/dL (0.66-1.25); EST GLOMERULAR FILTRATION RATE 107.6 ML/MIN; Potassium 3.7 mmol/L (3.5-5.1)
[2024-06-25] MEDS: Klor Con PO ONE (08:47)
[2024-06-25 09:49] VITALS: TEMP 98
[2024-06-25 12:16] VITALS: BP 134/91; PULSE 75; RESP 13; O2SAT 93
--- NOTE | 2024-06-25 12:16 | PCM.DS ---
Discharge Summary Date of Admission: 06/24/24 02:43 Date of Discharge: 06/25/24 Admitting Physician: KEMAR STONE MD Consults: Consults on Case 06/24/24 12:16 Consult Cardiology ROUTINE Primary Care Provider: ERENDIRA JOE MD Allergies Allergies codeine Allergy (Intermediate, Verified 06/23/24 23:52) Vomiting diphenhydramine HCl [From Benadryl] Adverse Reaction (Intermediate, Verified 06/23/24 23:52) acetaminophen [From [place]] Adverse Reaction (Verified 06/23/24 23:52) hydrocodone [From [place]] Adverse Reaction (Verified 06/23/24 23:52) Hospital Summary - Hospital Course Hospital Course: is a 53 year old male with a history of CAD/[place] (no PCI or CABG - had clean cath per history in [address] Sammie Acevedo). On 06/24/24 he presented to the ED with chest pain, palpitations and dizziness that began approximately 45 minutes prior to arrival. Patient states he had pericarditis in the past which compressed his heart causing a heart attack but his cardiac c atheterization did not show any coronary artery vessel disease. Patient also has a history of gastroesophageal reflux disease, gout, hypertension, diabetes, and COPD. He denied cough and fever. In the previous 24 hours he took aspirin. In the ED, the patient was noted to be in new onset atrial fibrillation with RVR. He did not initially achieve rate control with a bolus of Diltiazem, so an infusion was started with improved control. He was weaned off cardizem gtt yesterday. Cardiology consulted and continued metoprolol 50BID and Eliquis BID started. Echo reviewed and EF 55-60%. Pt reports he follows Dr. Asmita Acevedo for cardiology, will make f/u appointment. HR well controlled today. He states he feels fine and is ready to d/c. He denies CP, SOB, abd. pain, N/V/D. - Vitals & Intake/Output Vital Signs: Vital Signs Temperature 98.0 F 06/25/24 07:39 Pulse Rate 80 06/25/24 11:00 Respiratory Rate 17 06/25/24 11:00 Blood Pressure 110/75 06/25/24 11:00 O2 Sat by Pulse Oximetry 95 06/25/24 11:00 Intake & Output: Intake & Output 06/23/24 06/24/24 06/25/24 06/26/24 11:59 11:59 11:59 11:59 Intake Total 1060 Output Total 1000 2450 Balance -1000 -1390 Weight 97.4 kg - Lab Result Diagrams: 06/25/24 05:52 06/25/24 05:52 Lab Results-Last 24 Hrs: Lab Results-Last 24 Hours 06/25/24 06/25/24 Range/Units 05:52 05:52 WBC 6.8 (4.23-9.07) x10^3/uL RBC 4.80 (4.63-6.08) x10^6/uL Hgb 13.8 (13.7-17.5) g/dL Hct 42.6 (40.1-51.0) % MCV 88.8 (79.0-92.2) fL MCH 28.8 (25.7-32.2) pg MCHC 32.4 (32.3-36.5) g/dL RDW 13.2 (11.6-14.4) % Plt Count 270 (163-337) x10^3/uL MPV 8.9 L (9.4-12.4) fL Sodium 138 (135-145) mmol/L Potassium 3.7 (3.5-5.1) mmol/L Chloride 103 (98-107) mmol/L Carbon Dioxide 27 (22-30) mmol/L Anion Gap 11.3 (5-15) MEQ/L BUN 16 (9-20) mg/dL Creatinine 0.79 (0.66-1.25) mg/dL Estimated GFR 107.6 ML/MIN Glucose 139 H (74-106) mg/dL Calcium 8.3 L (8.4-10.2) mg/dL Total Bilirubin 0.60 (0.2-1.3) mg/dL AST 57 (17-59) U/L ALT 81 H (0-50) U/L Alkaline Phosphatase 91 (38-126) U/L Serum Total Protein 6.0 L (6.3-8.2) g/dL Albumin 3.4 L (3.5-5.0) g/dL Micro Results-Entire Visit: Accuchecks Date 06/25/24 Date 06/25/24 Date 06/24/24 Date 06/24/24 Time 12:00 Time 07:46 Time 22:18 Time 16:21 - Radiology Exams Ordered Rad Exams-Entire Visit: Radiology Procedures Category Date Time Status ECHO W/2D AND DOPPLER [US] Routine Exams 06/24/24 03:42 Taken - Procedures and Test Procedures and Tests throughout Hospitalization: Therapy Orders & Screens 06/24/24 02:49 EKG REPEAT IN AM Comment: 06/24/24 03:41 PT Eval & Treat ( Order) ONCE Reason for Eval:: atrial fibrillation Diagnosis: Atrial fibrillation with RVR Discharge Exam General Appearance: no apparent distress, alert, obese Neurologic Exam: alert, oriented x 3, cooperative, normal mood/affect, nml cerebellar function, sensation nml, No motor deficits Eye Exam: PERRL, EOMI, eyes nml inspection Ears, Nose, Throat Exam: normal ENT inspection, pharynx normal, moist mucous membranes Neck Exam: normal inspection, non-tender, supple, full range of motion Respiratory Exam: normal breath sounds, lungs clear, No respiratory distress Cardiovascular Exam: regular rate/rhythm, normal heart sounds Gastrointestinal/Abdomen Exam: soft, No tenderness, No mass Male Genitalia Exam: deferred Rectal Exam: deferred Back Exam: normal inspection, normal range of motion, No CVA tenderness, No vertebral tenderness Extremity Exam: normal inspection, normal range of motion Skin Exam: normal color, warm, dry Final Diagnosis/Problem List - Final Discharge Diagnosis/Problem (1) Atrial fibrillation with RVR Current Visit: Yes Status: Acute Assessment & Plan: - Cardizem gtt stopped 06/24 - Cardiology consulted - reviewed note and agree with plan of care - Tele - EKG - Metoprolol 50mg BID - Eliquis 5mg BID - CBC, CMP reviewed - Keep K+ > 4, and Mg+ > 2 - K+ replacement today - Echo - reviewed EF 55-60% - F/U with cardiology OP Code(s): I48.91 - UNSPECIFIED ATRIAL FIBRILLATION (2) Chest pain Current Visit: Yes Status: Resolved Assessment & Plan: - Trops x3 negative - EKG - Tele - F/U with cardiology OP- Appointment made - Likely will need OP stress test Code(s): R07.9 - CHEST PAIN, UNSPECIFIED (3) Dizziness Current Visit: No Status: Resolved Assessment & Plan: - resolved Code(s): R42 - DIZZINESS AND GIDDINESS (4) Diabetes Current Visit: No Status: Chronic Assessment & Plan: - Accuchecks AC/HS - Humalog S/S - Carb consistent diet Code(s): E11.9 - TYPE 2 DIABETES MELLITUS WITHOUT COMPLICATIONS (5) Obesity (BMI 30.0-34.9) Current Visit: Yes Status: Chronic Assessment & Plan: -Advised ADA diet and exercise control per cardiology recs Code(s): E66.811 - OBESITY, CLASS 1 - Discharge Discharge Date: 06/25/24 Disposition: Home, Self-Care Condition: Stable Prescriptions: New Apixaban [Eliquis 2.5 mg Tablet] 5 mg PO BID 30 Days #60 tablet Continue Omeprazole 40 mg PO DAILY Allopurinol 300 mg [Zyloprim 300 mg] 300 mg PO DAILY lisinopriL [Zestril] 5 mg PO DAILY Metoprolol Succinate 50 mg [Toprol Xl 50 MG] 50 mg PO BID Trazodone HCl 300 mg PO HS Cyanocobalamin (Vitamin B-12) [Vitamin B-12] 1,000 mcg PO DAILY Montelukast Sodium 10 mg [Singulair 10 MG] 10 mg PO DAILY Lurasidone HCl [Latuda] 60 mg PO DAILY Dapagliflozin Propanediol [Farxiga] 10 mg PO DAILY Zinc Gluconate [Zinc] 50 mg PO DAILY Aspirin EC 81 mg [Ecotrin 81 mg] 81 mg PO DAILY #0 Semaglutide [Ozempic] 1 mg SQ WEEKLY Sitagliptin Phosphate 50 MG [Januvia 50 MG] 100 mg PO DAILY Follow up with: ERENDIRA JOE MD [Primary Care Provider] - 06/30/24 9:40 am AGUSTIN ACEVEDO [CONSULTING PHYSICIAN] - 09/16/24 2:15 pm (Office will call with sooner appointment as soon as one becomes available.)
[2024-06-25] MEDS: HUMALOG SQ PRN (12:23)
== END 2024-06-25 13:23 | disposition home or self-care (01) ==
LOC: ED 23:32 → ICU 06-24 02:43
PROVIDERS: ADMIT Internal Medicine; ATTEND Internal Medicine
DX: I48.20 Chronic atrial fibrillation, unspecified (principal); R07.9 Chest pain, unspecified; I25.10 Atherosclerotic heart disease of native coronary artery without angina pectoris; I25.2 Old myocardial infarction; R42 Dizziness and giddiness; K21.9 Gastro-esophageal reflux disease without esophagitis; I10 Essential (primary) hypertension; E11.9 Type 2 diabetes mellitus without complications; J44.9 Chronic obstructive pulmonary disease, unspecified; E66.811 Obesity, class 1; Z79.899 Other long term (current) drug therapy
CPT/HCPCS: 36415; 80053; 81001; 83735; 83880; 84439; 84443; 84484; 85025; 85027; 85610; 93005; 93041; 93268; 93306; 94760; 96374; 99285; 99291; J1650; J1817; Q3014; A9270-GY; G0378

== ENCOUNTER 2024-07-27 19:32 | Emergency (ER) | payer OTHER ==
[2024-07-27 19:42] VITALS: TEMP 97.9
[2024-07-27] MEDS ORDERED: NITRO-BID 2% UD PACKETS ONE (20:02)
[2024-07-27 20:03] LABS: Absolute Neutrophil Ct (ANC) 6.27 x10^3/uL (1.78-5.38); BASOPHIL % 0.5 % (0.2-1.2); Basophil (Absolute #) 0.06 x10^3/uL (0.01-0.08); Eosinophil % 0.7 % (0.8-7.0); Eosinophil (Absolute #) 0.08 x10^3/uL (0.04-0.54); Hematocrit 47.7 % (40.1-51.0); Hemoglobin 15.8 g/dL (13.7-17.5); IMMATURE GRAN # 0.04 x10^3u/L (0.001-0.031); IMMATURE GRAN % 0.4 % (0.001-0.429); Lymphocyte (Absolute #) 3.39 x10^3/uL (1.32-3.57); Lymphocytes % 30.9 % (21.8-53.1); Mean Cell Volume 87.2 fL (79.0-92.2); Mean Corpuscular Hemoglobin 28.9 pg (25.7-32.2); Mean Corpuscular Hgb Concent. 33.1 g/dL (32.3-36.5); Monocyte (Absolute #) 1.14 x10^3/uL (0.30-0.82); Monocytes % 10.4 % (5.3-12.2); Neutrophil % 57.1 % (34.0-67.9); Platelet Count 325 x10^3/uL (163-337); Red Blood Count 5.47 x10^6/uL (4.63-6.08); Red Cell Distribution Width 13.1 % (11.6-14.4)
[2024-07-27] MEDS: NITRO-BID 2% UD PACKETS TOP ONE (20:05)
[2024-07-27] MEDS ORDERED: Toprol-Xl 25MG Tablets ONE (20:10)
[2024-07-27] MEDS: Toprol-Xl 25MG Tablets PO SCH (20:13)
--- NOTE | 2024-07-27 20:13 | ERPHSYRPT ---
- History of Present Illness Time Seen by Provider: 07/27/24 19:34 Source: patient Exam Limitations: clinical condition Patient Subjective Stated Complaint: says he feels like he might be in afib again Triage Nursing Assessment: pt is alert and oriented x3, ambulated to the room , no edema noted, does appear out of breath from exertion. pupils perrla 3, pulses equal bilateral radius bounding. skin warm dry nad intact . patient states when he went to the market research assistant on July 03 he was not in AFIB at that time but they kept him on the eliquis. Timing/Duration: today Severity: mild Associated Symptoms: denies symptoms Allergies/Adverse Reactions: codeine Allergy (Intermediate, Verified 07/27/24 20:05) Vomiting diphenhydramine HCl [From [place]] Adverse Reaction (Intermediate, Verified 07/27/24 20:05) acetaminophen [From [place]] Adverse Reaction (Verified 07/27/24 20:05) hydrocodone [From [place]] Adverse Reaction (Verified 07/27/24 20:05) Home Medications: Omeprazole 40 mg PO DAILY 09/27/14 [History] Allopurinol 300 mg [Zyloprim 300 mg] 300 mg PO DAILY 12/17/18 [History] lisinopriL [Zestril] 5 mg PO DAILY 12/17/18 [History] Metoprolol Succinate 50 mg [Toprol Xl 50 MG] 50 mg PO BID 08/05/20 [History] Cyanocobalamin (Vitamin B-12) [Vitamin B-12] 1,000 mcg PO DAILY 12/12/23 [Hi story] Dapagliflozin Propanediol [Farxiga] 10 mg PO DAILY 12/12/23 [History] Lurasidone HCl [Latuda] 60 mg PO DAILY 12/12/23 [History] Montelukast Sodium 10 mg [Singulair 10 MG] 10 mg PO DAILY 12/12/23 [History] Trazodone HCl 300 mg PO HS 12/12/23 [History] Zinc Gluconate [Zinc] 50 mg PO DAILY 12/12/23 [History] Semaglutide [Ozempic] 1 mg SQ WEEKLY 06/23/24 [History] Sitagliptin Phosphate 50 MG [Januvia 50 MG] 100 mg PO DAILY 06/23/24 [History] Hx Tetanus, Diphtheria Vaccination/Date Given: Yes Hx Influenza Vaccination/Date Given: No Hx Pneumococcal Vaccination/Date Given: No Travel Risk - International Travel Have you traveled outside of the country in past 3 weeks: No - Emerging Infectious Disease Are you exhibiting symptoms associated with any current EIDs: No Symptoms: Shortness of Breath - Review of Systems Constitutional: No Symptoms Eyes: No Symptoms Ears, Nose, & Throat: No Symptoms Respiratory: No Symptoms Cardiac: Chest Pain Abdominal/Gastrointestinal: No Symptoms Genitourinary Symptoms: No Symptoms Musculoskeletal: No Symptoms - Past Medical History Pertinent Past Medical History: Yes Neurological History: Migraines ENT History: No Pertinent History Cardiac History: Arrhythmia, Myocardial Infarction ([place]), Other Respiratory History: COPD Endocrine Medical History: Diabetes Type II Musculoskeletal History: Fractures GI Medical History: GERD History: No Pertinent History Psycho-Social History: Depression, Anxiety Male Reproductive Disorders: Prostate Problems Other Medical History: HX FX LEFT ANKLE 12/07 WITH ORIF - REPORTS NO RESIDUAL PROBLEM. HX GOUT, PERIFCARDITIS - PER HX HEART CATH AT THAT TIME WAS NEGATIVE FOR CAD - Past Surgical History Past Surgical History: Yes Neuro Surgical History: No Pertinent History Cardiac: Cardiac Catheterization Respiratory: No Pertinent History Gastrointestinal: No Pertinent History Genitourinary: No Pertinent History Musculoskeletal: Orthopedic Surgery Male Surgical History: No Pertinent History Other Surgical History: R WRIST, SINUS, L ankle Significant Family History: no pertinent family hx - Social History Smoking Status: Never smoker Exposure to second hand smoke: No Drug Use: none - Social Determinants of Health Will the patient participate in the screening: Yes Do you worry about a steady place to live?: No Do you have any problems with any of the following?: No known problems In the past 12 months,have you had to go without utilities?: No Transportation Issues: No Has anyone in your support network made you feel unsafe?: No Have you or anyone in your house had to go w/o enough food: No - Nursing Vital Signs Nursing Vital Signs: Initial Vital Signs Pulse Rate 113 H 07/27/24 19:33 Respiratory Rate 21 07/27/24 19:33 Blood Pressure 143/72 07/27/24 19:33 O2 Sat by Pulse Oximetry 96 07/27/24 19:33 Pain Scale Pain Intensity 0 - Physical Exam General Appearance: no apparent distress Eye Exam: PERRL/EOMI Ears, Nose, Throat Exam: normal ENT inspection Respiratory Exam: normal breath sounds Cardiovascular Exam: other (patient is in Afib) Gastrointestinal/Abdomen Exam: soft SpO2: 96 Ordered Tests: Active Orders 24 hr Category Date Time Status CHEST WITH CONTRAST [CT] Stat Exams 07/27/24 20:17 Completed CBC W DIFF Stat Lab 07/27/24 19:50 Completed CK-Creatinine Phosphokinase Stat Lab 07/27/24 19:50 Completed CMP Stat Lab 07/27/24 19:50 Completed D-DIMER QUANTITATIVE Stat Lab 07/27/24 19:50 Completed NT PRO BNPII Stat Lab 07/27/24 19:50 Completed TROPONIN Q4H Lab 07/27/24 19:50 Completed TROPONIN Q4H Lab 07/28/24 00:22 Completed TROPONIN Q4H Lab 07/28/24 04:14 Completed Medication Summary Generic Name Dose Route Start Last Admin Trade Name Freq PRN Reason Stop Dose Admin Metoprolol Succinate 50 mg 07/28/24 10:00 07/27/24 20:13 Metoprolol Succinate 25 Mg Xl Tab PO 08/27/24 09:59 50 mg DAILY [id number] Administration Discontinued Medications Generic Name Dose Route Start Last Admin Trade Name Freq PRN Reason Stop Dose Admin Metoprolol Succinate Confirm 07/27/24 20:10 Metoprolol Succinate 25 Mg Xl Tab Administered 07/27/24 20:11 Dose 50 mg .ROUTE .STK-MED ONE Nitroglycerin 1 gm 07/27/24 19:57 07/27/24 20:05 Nitroglycerin 1 Gm Packet TOP 07/27/24 19:58 1 gm STAT ONE Administration Nitroglycerin Confirm 07/27/24 20:02 Nitroglycerin 1 Gm Packet Administered 07/27/24 20:03 Dose 1 gm .ROUTE .STK-MED ONE Lab/Rad Data: Laboratory Result Diagrams 07/27/24 19:50 07/27/24 19:50 Laboratory Results 07/28/24 07/28/24 07/27/24 Range/Units 04:14 00:22 19:50 WBC (4.23-9.07) x10^3/uL RBC (4.63-6.08) x10^6/uL Hgb (13.7-17.5) g/dL Hct (40.1-51.0) % MCV (79.0-92.2) fL MCH (25.7-32.2) pg MCHC (32.3-36.5) g/dL RDW (11.6-14.4) % Plt Count (163-337) x10^3/uL MPV (9.4-12.4) fL Gran % (34.0-67.9) % Immature Gran % (Auto) (0.001-0.429) % Nucleat RBC Rel Count (0.00-0.2) % Eos # (Auto) (0.04-0.54) x10^3/uL Immature Gran # (Auto) (0.001-0.031) x10^3u/L Absolute Lymphs (auto) (1.32-3.57) x10^3/uL Absolute Monos (auto) (0.30-0.82) x10^3/uL Absolute Nucleated RBC (0.00-0.012) x10^3u/L Lymphocytes % (21.8-53.1) % Monocytes % (5.3-12.2) % Eosinophils % (0.8-7.0) % Basophils % (0.2-1.2) % Absolute Granulocytes (1.78-5.38) x10^3/uL Basophils # (0.01-0.08) x10^3/uL D-Dimer (0.0-0.50) mg/L Sodium (135-145) mmol/L Potassium (3.5-5.1) mmol/L Chloride (98-107) mmol/L Carbon Dioxide (22-30) mmol/L Anion Gap (5-15) MEQ/L BUN (9-20) mg/dL Creatinine (0.66-1.25) mg/dL Estimated GFR ML/MIN Glucose (74-106) mg/dL Calcium (8.4-10.2) mg/dL Total Bilirubin (0.2-1.3) mg/dL AST (17-59) U/L ALT (0-50) U/L Alkaline Phosphatase (38-126) U/L Creatine Kinase (55-170) U/L Troponin I < 0.012 < 0.012 < 0.012 (0.000-0.033) ng/mL NT-Pro-B Natriuret Pep (<300) pg/mL Serum Total Protein (6.3-8.2) g/dL Albumin (3.5-5.0) g/dL 07/27/24 07/27/24 07/27/24 Range/Units 19:50 19:50 19:50 WBC 11.0 H (4.23-9.07) x10^3/uL RBC 5.47 (4.63-6.08) x10^6/uL Hgb 15.8 (13.7-17.5) g/dL Hct 47.7 (40.1-51.0) % MCV 87.2 (79.0-92.2) fL MCH 28.9 (25.7-32.2) pg MCHC 33.1 (32.3-36.5) g/dL RDW 13.1 (11.6-14.4) % Plt Count 325 (163-337) x10^3/uL MPV 9.0 L (9.4-12.4) fL Gran % 57.1 (34.0-67.9) % Immature Gran % (Auto) 0.4 (0.001-0.429) % Nucleat RBC Rel Count 0.0 (0.00-0.2) % Eos # (Auto) 0.08 (0.04-0.54) x10^3/uL Immature Gran # (Auto) 0.04 H (0.001-0.031) x10^3u/L Absolute Lymphs (auto) 3.39 (1.32-3.57) x10^3/uL Absolute Monos (auto) 1.14 H (0.30-0.82) x10^3/uL Absolute Nucleated RBC 0.00 (0.00-0.012) x10^3u/L Lymphocytes % 30.9 (21.8-53.1) % Monocytes % 10.4 (5.3-12.2) % Eosinophils % 0.7 L (0.8-7.0) % Basophils % 0.5 (0.2-1.2) % Absolute Granulocytes 6.27 H (1.78-5.38) x10^3/uL Basophils # 0.06 (0.01-0.08) x10^3/uL D-Dimer < 0.19 (0.0-0.50) mg/L Sodium 139 (135-145) mmol/L Potassium 4.0 (3.5-5.1) mmol/L Chloride 102 (98-107) mmol/L Carbon Dioxide 25 (22-30) mmol/L Anion Gap 15.9 H (5-15) MEQ/L BUN 15 (9-20) mg/dL Creatinine 1.01 (0.66-1.25) mg/dL Estimated GFR 90.0 ML/MIN Glucose 146 H (74-106) mg/dL Calcium 8.9 (8.4-10.2) mg/dL Total Bilirubin 0.90 (0.2-1.3) mg/dL AST 26 (17-59) U/L ALT 29 (0-50) U/L Alkaline Phosphatase 89 (38-126) U/L Creatine Kinase 58 (55-170) U/L Troponin I (0.000-0.033) ng/mL NT-Pro-B Natriuret Pep 1650 (<300) pg/mL Serum Total Protein 6.9 (6.3-8.2) g/dL Albumin 4.2 (3.5-5.0) g/dL - Progress Progress Note: . Patient was seen and evaluated for chest pain cardiac protocol was initiated patient took aspirin at home nitroglycerin was given. EKG reveals the patient to be in A-fib with a rate between 90 and 120. Patient informs me that he has not taken his evening dose of metoprolol this was ordered. I have informed him that we will eluate him and consult cardiology is agreeable with the plan 07/27/24 20:11 07/27/24 23:36 Patient was updated with his results he was still having some nonspecific chest pain CT PE study was obtained this is within normal limits. As he is having pain nonspecific I spoke to the market research assistant on-call at [facility], wants the patient transferred there for ACS rule out. spoke to the hospitalist Dr. Gordillo who will accept the patient. Bed management will arrange for bed and transfer at the appropriate time. And his family were updated with the plan and are agreeable. and have no further questions at this time Medical Desision Making - Discussion of managment Care discussed with:: specialist Reviewed:: Need for additional workup Will see patient: in hospital - Departure Departure Disposition: Transfer (to [facility]) Clinical Impression: Acute chest pain, Anxiety Condition: Stable Critical Care Time: No Referrals: ERENDIRA JOE MD [Primary Care Provider] - Follow up/PCP as directed
[2024-07-27 20:17] LABS: ALBUMIN 4.2 g/dL (3.5-5.0); ANION GAP 15.9 MEQ/L (5-15); BILIRUBIN,TOTAL 0.9 mg/dL (0.2-1.3); Calcium 8.9 mg/dL (8.4-10.2); Creatinine 1 1.01 mg/dL (0.66-1.25); Total Protein 6.9 g/dL (6.3-8.2)
--- NOTE | 2024-07-27 22:29 | XRAY ---
CLINICAL HISTORY: chest pain and afib r/o pe COMPARISON: No prior studies available for comparison. TECHNIQUE: CT angiography of the chest was performed with and without intravenous contrast with the following protocol: axial images with, reconstructed coronal and sagittal images. Non-contrast images were initially acquired, followed by contrast-enhanced images in arterial and venous phases. Intravenous contrast 80ml isovue 370 was administered using automated injection techniques. Bolus tracking was employed to optimize arterial phase imaging. One of these 3D techniques was utilized: Maximum Intensity Pixel (MIP), 3D Reconstructed Images, Volume Rendered Images, Surface Shaded Rendering. One of the following dose reduction techniques was utilized for this exam: Automated exposure control, adjustment of the mA and/or kV according to patient size, and use of iterative reconstruction. FINDINGS: Aorta and Great Vessels: Ascending Aorta: Normal in caliber, no aneurysm, dissection, or significant atherosclerosis. Aortic Arch: Normal in caliber, no aneurysm, dissection, or significant atherosclerosis. Descending Aorta: Normal in caliber, no aneurysm, dissection, or significant atherosclerosis. Pulmonary Arteries: The main pulmonary artery and its branches are patent. No evidence of pulmonary embolism or significant stenosis. Heart: Cardiac Chambers: Normal in size. No evidence of cardiomegaly. Pericardium: No pericardial effusion or thickening. Lungs and Pleura: Lungs are clear without evidence of consolidation, collapse, or focal lesions. No pleural effusion or pleural thickening. Mediastinum: A non-opacified small azygos vein was noted. No mediastinal mass or abnormal lymphadenopathy. Normal appearance of the trachea and central bronchi. Hilar Structures: Hilar structures are normal without enlargement. Chest Wall: No mass lesions or abnormalities in the chest wall. Vascular Structures: Superior Vena Cava: Patent without evidence of stenosis or thrombus. Inferior Vena Cava: Patent without evidence of stenosis or thrombus. Bones and Soft Tissues: Spondylosis of the thoracic spine. No fractures, lytic, or blastic lesions of the visualized bony structures. Soft tissues are unremarkable. Upper abdominal cuts are unremarkable apart from a small right renal cortical cyst. IMPRESSION: No evidence of acute pulmonary embolism. Electronically Signed by: Paula Bedoya MD. (07/27/2024 22:26:30 EDT)
[2024-07-28] MEDS ORDERED: Toprol-Xl 25MG Tablets ONE (11:57)
[2024-07-28] MEDS: Zestril 5 MG PO STA (12:05)
[2024-07-28] MEDS: Toprol-Xl 25MG Tablets PO ONE ×2 (12:07→12:09)
[2024-07-28 15:38] VITALS: RESP 16
[2024-07-28] MEDS ORDERED: LOPRESSOR INJECTION IV ONE (16:50)
[2024-07-28] MEDS: LOPRESSOR INJECTION IV ONE (16:52)
[2024-07-28 17:02] LABS: ANION GAP 12.2 MEQ/L (5-15); Calcium 8.9 mg/dL (8.4-10.2); Creatinine 1 0.93 mg/dL (0.66-1.25); EST GLOMERULAR FILTRATION RATE 99.4 ML/MIN; Potassium 4.1 mmol/L (3.5-5.1)
[2024-07-28 17:27] VITALS: BP 122/100; PULSE 89; O2SAT 95
== END 2024-07-28 17:34 | disposition home or self-care (01) ==
LOC: ED 19:32
DX: R07.9 Chest pain, unspecified (principal); F41.9 Anxiety disorder, unspecified; I48.91 Unspecified atrial fibrillation; E11.9 Type 2 diabetes mellitus without complications; Z79.84 Long term (current) use of oral hypoglycemic drugs; Z79.85 Long-term (current) use of injectable non-insulin antidiabetic drugs; Z79.01 Long term (current) use of anticoagulants; Z79.899 Other long term (current) drug therapy
CPT/HCPCS: 36415; 71260; 80048; 80053; 82550; 83735; 83880; 84484; 85025; 85379; 93005; 96374; 96375; 99285; A9270-GY

== ENCOUNTER 2025-01-08 20:26 | Emergency (ER) | payer OTHER ==
--- NOTE | 2025-01-08 20:30 | ERPHSYRPT ---
- History of Present Illness Time Seen by Provider: 01/08/25 20:30 Source: patient, family Exam Limitations: no limitations Physician History: This is a 54-year-old white male patient who was grinding metal earlier in the afternoon when a piece of metal ricocheted and went behind his left glasses lens into the lateral aspect of his left eye. He describes the pain as a burning pain and it has a level of 3 out of 10. There has been no change in his vision. Timing/Duration: today Location: left eye Severity: mild Apparent Injury: possibly Associated Symptoms: burning, foreign body sensation (3 o'clock position in the left eye), No sensitivity to light, No redness, No matting, No decreased vision, No blurred vision Visual Assistive Devices: Glasses Chemical Exposure: No Trauma: No Welding Arc/Tanning Bed Exposure: No Allergies/Adverse Reactions: codeine Allergy (Intermediate, Verified 01/08/25 20:40) Vomiting diphenhydramine HCl [From [place]ad[place]] Adverse Reaction (Intermediate, Verified 01/08/25 20:40) acetaminophen [From [place]] Adverse Reaction (Verified 01/08/25 20:40) hydrocodone [From [place]] Adverse Reaction (Verified 01/08/25 20:40) Home Medications: Omeprazole 40 mg PO DAILY 09/27/14 [History] Allopurinol 300 mg [Zyloprim 300 mg] 300 mg PO DAILY 12/17/18 [History] lisinopriL [Zestril] 5 mg PO DAILY 12/17/18 [History] Cyanocobalamin (Vitamin B-12) [Vitamin B-12] 1,000 mcg PO DAILY 12/12/23 [History] Dapagliflozin Propanediol [Farxiga] 10 mg PO DAILY 12/12/23 [History] Lurasidone HCl [Latuda] 60 mg PO DAILY 12/12/23 [History] Montelukast Sodium 10 mg [Singulair 10 MG] 10 mg PO DAILY 12/12/23 [History] Trazodone HCl 300 mg PO HS 12/12/23 [History] Zinc Gluconate [Zinc] 50 mg PO DAILY 12/12/23 [History] Semaglutide [Ozempic] 1 mg SQ WEEKLY 06/23/24 [History] Sitagliptin Phosphate 50 MG [Januvia 50 MG] 100 mg PO DAILY 06/23/24 [History] dilTIAZem HCL [Diltiazem 24Hr ER] 180 mg PO DAILY 01/08/25 [History] Hx Tetanus, Diphtheria Vaccination/Date Given: Yes Hx Influenza Vaccination/Date Given: No Hx Pneumococcal Vaccination/Date Given: No Travel Risk - International Travel Have you traveled outside of the country in past 3 weeks: No - Emerging Infectious Disease Are you exhibiting symptoms associated with any current EIDs: No Symptoms: Shortness of Breath - Review of Systems Constitutional: No Symptoms Eyes: Eye Pain (3 out of 10 lateral aspect left eye 3 o'clock position), Foreign Body Sensation, No Eye Redness, No Tearing, No Vision Changes, No Double Vision Ears, Nose, & Throat: No Symptoms Respiratory: No Symptoms Cardiac: No Symptoms Abdominal/Gastrointestinal: No Symptoms Genitourinary Symptoms: No Symptoms Musculoskeletal: No Symptoms Skin: No Symptoms Neurological: No Symptoms Psychological: No Symptoms Endocrine: No Symptoms Hematologic/Lymphatic: No Symptoms Immunological/Allergic: No Symptoms All Other Systems: Reviewed and Negative - Past Medical History Pertinent Past Medical History: Yes Neurological History: Migraines ENT History: No Pertinent History Cardiac History: Arrhythmia, Myocardial Infarction ([place]), Other Respiratory History: COPD Endocrine Medical History: Diabetes Type II Musculoskeletal History: Fractures GI Medical History: GERD History: No Pertinent History Psycho-Social History: Depression, Anxiety Male Reproductive Disorders: Prostate Problems Other Medical History: HX FX LEFT ANKLE 12/07 WITH ORIF - REPORTS NO RESIDUAL PROBLEM. HX GOUT, PERIFCARDITIS - PER HX HEART CATH AT THAT TIME WAS NEGATIVE FOR CAD - Past Surgical History Past Surgical History: Yes Neuro Surgical History: No Pertinent History Cardiac: Cardiac Catheterization Respiratory: No Pertinent History Gastrointestinal: No Pertinent History Genitourinary: No Pertinent History Musculoskeletal: Orthopedic Surgery Male Surgical History: No Pertinent History Other Surgical History: R WRIST, SINUS, L ankle Significant Family History: no pertinent family hx - Social History Smoking Status: Never smoker Exposure to second hand smoke: No Drug Use: none - Social Determinants of Health Will the patient participate in the screening: Yes Do you worry about a steady place to live?: No In the past 12 months,have you had to go without utilities?: No Transportation Issues: No Has anyone in your support network made you feel unsafe?: No Have you or anyone in your house had to go w/o enough food: No - Nursing Vital Signs Nursing Vital Signs: Initial Vital Signs Temperature 96.4 F 01/08/25 20:42 Pulse Rate 61 01/08/25 20:42 Respiratory Rate 16 01/08/25 20:42 Blood Pressure 135/83 01/08/25 20:42 O2 Sat by Pulse Oximetry 97 01/08/25 20:42 Pain Scale Pain Intensity 3 - Physical Exam General Appearance: no apparent distress, alert, anxiety Eye Exam: right eye: normal inspection, left eye: corneal abrasion (3 o'clock position left eye), bilateral eye: PERRL, EOMI Ears, Nose, Throat Exam: normal ENT inspection, moist mucous membranes Neck Exam: normal inspection, non-tender, supple, full range of motion Respiratory Exam: airway intact, No chest tenderness, No respiratory distress Gastrointestinal Exam: No tenderness Extremity Exam: normal inspection, normal range of motion, pelvis stable Neurologic: alert, oriented x 3, cooperative, hot box checker II-XII nml as tested, nml cerebellar function, sensation nml Skin Exam: normal color, warm, dry Lymphatic: No adenopathy SpO2 Interpretation: normal O2 Delivery: Room Air Procedures - Eye Procedure Time of Procedure: 21:25 Timeout: Performed Tetracaine Drops Administered: Yes Antibiotic Oinment/Drps Admin: left eye - Course Nursing assessment & vital signs reviewed: Yes Ordered Tests: Medication Summary Discontinued Medications Generic Name Dose Route Start Last Admin Trade Name Silver PRN Reason Stop Dose Admin Fluorescein Sodium Confirm 01/08/25 20:57 Fluorescein Sodium 1 Mg/Strip Strip Administered 01/08/25 20:58 Dose 1 mg OP .STK-MED ONE Fluorescein Sodium 1 mg 01/08/25 20:59 01/08/25 21:00 Fluorescein Sodium 1 Mg/Strip Strip OP 01/08/25 21:00 1 mg STAT ONE Administration Tetracaine HCl 4 ml 01/08/25 20:59 01/08/25 21:00 Tetracaine Hcl/Pf 4 Ml Bottle OP 01/08/25 21:00 4 ml STAT STA Administration Tetracaine HCl Confirm 01/08/25 20:58 Tetracaine Hcl/Pf 4 Ml Bottle Administered 01/08/25 20:59 Dose 4 ml OP .STK-MED ONE - Progress Progress: improved, re-examined Progress Note: 09/25/25 21:39 My medical decision making and the assignment of low complexity of this patient's medical issue today is based on review of the patient's past medical history, review the patient's medication list, reviewed patient drug allergy list, history present illness and physical findings on examination. The workup in this patient includes fluorescein test, tetracaine drops and black light to assess for corneal abrasion. Differential diagnosis includes was not limited to corneal abrasion, foreign body, conjunctivitis Counseled pt/family regarding: diagnosis, need for follow-up Medical Desision Making - Independent Historian Additional History obtained from: Spouse - Diagnostic Testing Diagnostic test were ordered, analyzed, and reviewed by me: No - Risk of complications Low Risk: Low risk of morbidity from additional dx testing or treatment The pt has a mod risk of morbidity or mortality based on: Need for prescription drug management - Departure Departure Disposition: Home Clinical Impression: Left corneal abrasion Condition: Stable Critical Care Time: No Referrals: ERENDIRA JOE MD [Primary Care Provider, [facility]] - Follow up/PCP as directed Additional Instructions: Continue the antibiotic ointment 3 times a day for the next 3 to 5 days. Before each placement of an ointment strip to the left eye, irrigate out the left eye well. Use Tylenol and ibuprofen for pain control. Call your hand kiss setter tomorrow, 01/09/2025, to make arrangements for follow-up appointment for further evaluation management. Prescriptions: Erythromycin Base 3.5 gm [Erythromycin 3.5 GM OPHTH.] 3.5 gm OP TID #1 unit
[2025-01-08 20:51] VITALS: PULSE 61; RESP 16; TEMP 96.4; O2SAT 97
[2025-01-08] MEDS ORDERED: Fluor-I-Strip/Ful-Flo OP ONE (20:57)
[2025-01-08] MEDS ORDERED: TETRACAINE 0.5% STERI-UNIT SOL OP ONE (20:58)
[2025-01-08] MEDS: TETRACAINE 0.5% STERI-UNIT SOL OP STA (21:00)
[2025-01-08] MEDS: Fluor-I-Strip/Ful-Flo OP ONE (21:00)
[2025-01-08] MEDS ORDERED: Erythromycin 1 GM ONE (21:45)
[2025-01-08] MEDS: Erythromycin 1 GM OP STA (21:45)
[2025-01-08 21:47] VITALS: BP 122/87
== END 2025-01-08 21:55 | disposition home or self-care (01) ==
LOC: ED 20:26
DX: S05.02XA Injury of conjunctiva and corneal abrasion without foreign body, left eye, initial encounter (principal); W20.8XXA Other cause of strike by thrown, projected or falling object, initial encounter; E11.9 Type 2 diabetes mellitus without complications; Z79.84 Long term (current) use of oral hypoglycemic drugs; Z79.85 Long-term (current) use of injectable non-insulin antidiabetic drugs; Z79.899 Other long term (current) drug therapy